=== PATIENT | male | born 1950 | race African-American/Black ===

== ENCOUNTER 2025-01-03 15:56 | Emergency (ER) | payer OTHER ==
[~2025-01-03] VITALS: Ht 188 cm; Wt 109.0 kg
[2025-01-03 15:59] VITALS: O2SAT 98
[2025-01-03 16:36] LABS: HEMATOCRIT. 40.2 % (42.0-52.0); HEMOGLOBIN. 13.7 g/dL (14.0-18.0); MEAN CORPUSCULAR HEMOGLOBIN 31.2 pg (28.0-32.0); MEAN CORPUSCULAR HGB CONC 34.1 g/dL (31.0-37.0); MEAN CORPUSCULAR VOLUME 91.6 fL (80.0-94.0); MEAN PLATELET VOLUME 8.8 fl (7.4-10.4); PLATELET 198 x1000/uL (130-400); RED BLOOD CELL COUNT 4.39 mill/uL (4.7-6.1); RED CELL DISTRIBUTION WIDTH 12.9 % (11.6-14.6); WHITE BLOOD COUNT 26.1 x1000/uL (4.5-11.0)
[2025-01-03 16:38] LABS: DIFFERENTIAL COMMENT 1
[2025-01-03 16:43] LABS: CHLORIDE 102 mEq/L (98-107); POTASSIUM 3.8 mEq/L (3.5-5.1); SODIUM 141 mEq/L (136-145)
[2025-01-03 16:44] LABS: CARBON DIOXIDE 28 mEq/L (21-32)
[2025-01-03 16:45] LABS: CALCIUM 8.9 mg/dL (8.7-10.4)
[2025-01-03 16:47] LABS: INR 1.2; PROTHROMBIN TIME 12.6 sec (9.6-11.0)
[2025-01-03 16:49] LABS: CREATININE 1.7 mg/dL (0.6-1.3); GLUCOSE 121 mg/dL (70-105); UREA NITROGEN BLOOD 17 mg/dL (9-23)
[2025-01-03 16:51] LABS: TROPONIN I HIGH SENSITIVITY 6 ng/L (3.0-53)
[2025-01-03] MEDS ORDERED: SODIUM CHLORIDE 0.9% (SEPSIS BOLUS) IV ONE (17:00)
[2025-01-03 17:13] LABS: PLATELET ESTIMATE NORMAL
[2025-01-03] MEDS: SODIUM CHLORIDE 0.9% 1,000 ML IV ONE (17:36)
[2025-01-03] MEDS: IOHEXOL-350 100 ML BOTTLE ONE ×2 (17:36→23:48)
[2025-01-03] MEDS: PIPERACILLIN/TAZO 3.375G/50ML 50 ML IV ONE (17:45)
[2025-01-03 18:42] LABS: CLARITY URINE CLOUDY (CLEAR); COLOR URINE ORANGE (YELLOW); GLUCOSE URINE NEGATIVE (NEGATIVE); KETONES URINE NEGATIVE (NEGATIVE); LEUKOCYTE ESTERASE URINE 2+ (NEGATIVE); NITRITE URINE POSITIVE (NEGATIVE); OCCULT BLOOD URINE 3+ (NEGATIVE); PROTEIN URINE 3+ (NEGATIVE); SPECIFIC GRAVITY URINE 1.028 (1.005-1.030)
[2025-01-03] MEDS: VANCOMYCIN 1G PREMIX 200 ML IV ONE (18:54)
[2025-01-03 19:30] LABS: BACTERIA URINE 3+; RBC URINE 25-50 /hpf (0-2); SQUAMOUS EPITHELIAL CELL URINE FEW /lpf (RARE/1+)
[2025-01-03 19:35] LABS: ALANINE AMINOTRANSFERASE 15 IU/L (10-49); ALBUMIN 3.9 g/dL (3.2-4.8); ASPARTATE AMINOTRANSFERASE 18 IU/L (<34); BILIRUBIN DIRECT 0.4 mg/dL (<=3.0); BILIRUBIN TOTAL 1.4 mg/dL (0.1-1.0)
[2025-01-03 19:36] LABS: PROTEIN TOTAL 7.2 g/dL (6.0-8.3)
[2025-01-03 22:22] VITALS: BP 166/94; PULSE 89; RESP 22; TEMP 36.9; O2SAT 97
== END 2025-01-03 23:52 | disposition short-term general hospital (02) ==
LOC: ER 15:56 → CANBEDREQ 18:59 → ER 23:52
DX: A41.9 Sepsis, unspecified organism (principal); R65.21 Severe sepsis with septic shock; N39.0 Urinary tract infection, site not specified; R41.82 Altered mental status, unspecified; I51.7 Cardiomegaly; Z79.899 Other long term (current) drug therapy
CPT/HCPCS: 99291; 70496; 96365; 71045; 96367; 96366; 80076; 80048; 81003; 83880; 83605; 85025; 85610; 87040; 87086; 87186; 84484; 87077; 36415; 84145; 70498; 74176; 93005; 70450; Q9967; J2543; J3370; J7030; A4606